=== PATIENT | male | born 1990 | race Caucasian/White ===

== ENCOUNTER 2023-02-25 15:55 | Emergency (ER) | payer BC, MEDICAID, SELFPAY ==
[2023-02-25 15:56] VITALS: BP 146/116; PULSE 101; RESP 16; TEMP 35.8; O2SAT 96; BMI 43.9
[2023-02-25 16:01] VITALS: O2SAT 98
--- NOTE | 2023-02-25 16:08 | EKG12_ITS ---
Test Reason : COUGH Blood Pressure : / mmHG Vent. Rate : 090 BPM Atrial Rate : 090 BPM P-R Int : 166 ms QRS Dur : 084 ms QT Int : 352 ms P-R-T Axes : 029 -05 018 degrees QTc Int : 430 ms Normal sinus rhythm Normal ECG Confirmed by CRISELDA MIRANDA, ROSS ([id number]), production editor TU STARR ([id number]) on 02/26/2023 9:10:57 AM Referred By: Confirmed By:ROSS ABURTO MD
--- NOTE | 2023-02-25 16:10 | EDS_ITS ---
HPI History of Present Illness Chief Complaint: Cough Informant: patient Onset/Context/Timing Onset: Weeks Narrative Narrative: Patient presents with cough, congestion, chest heaviness. He states he had cough and head congestion that he thought was consistent with his seasonal allergies for the past month. No fever noted. He states has not been taking a medication for it because everything he has tried in the past has not worked. Over the past week he now has pressure into his chest. [facility] Medical History COVID Home Medications doxycycline monohydrate 100 mg capsule 100 mg PO BID #20 CAPSULES 02/25/23 [Rx Last Taken Unknown] Allergy/AdvReac Type Severity Reaction Status Date / Time No Known Allergies Allergy Verified 02/25/23 15:58 Social History Smoking Status: Former smoker ROS ROS ED Constitutional Constitutional ED: Denies chills or fever(s) Eyes Eyes: Denies discharge from eye(s) ENT ENT ED: Reports sore throat and other Details: Sinus congestion ; Denies discharge from eye(s) or rhinorrhea Cardiovascular Cardiovascular: Reports chest pain; Denies palpitations Respiratory/Chest Respiratory/Chest: Reports cough and dyspnea Gastrointestinal Gastrointestinal: Denies abdominal pain, nausea or vomiting Genitourinary Genitourinary ED: Denies dysuria Musculoskeletal Musculoskeletal: Denies back pain or extremity pain Integumentary Denies Abrasions or rash Neurologic Neurologic: Denies headache(s) or weakness Psychiatric Psychiatric: Denies anxiety or depression Allergic/Immunologic Allergic/Immunologic ED: Denies lip swelling or urticaria EXAM Physical Exam Const Vital Signs: 02/25/23 15:56 02/25/23 16:01 02/25/23 17:07 Temperature 96.5 F L Temperature Source Temporal Pulse Rate 101 H 105 H Respiratory Rate 16 Respiratory Effort Non-Labored Short of Breath Blood Pressure 146/116 H Blood Pressure Mean 126 Pulse Ox 96 Oxygen Delivery Method Room Air Room Air Positive well nourished and well developed General Appearance ED: well developed HEENT Reports normocephalic and head/scalp atraumatic Eyes PERRL and EOMs intact bilaterally Neck supple Chest Wall inspection of chest normal and palpation of chest normal Resp normal respiratory effort and clear to auscultation bilaterally Cardio regular rate and regular rhythm GI normal to inspection, nondistended, normoactive bowel sounds Palpation: soft Extremity normal to inspection Neuro oriented x3 and no sensory deficits noted Sensorium / Orientation: alert Motor Exam: strength 5/5 throughout Psych mental status grossly normal Skin no rashes or lesions noted MDM MDM MDM Narrative Medical decision making narrative: Patient placed on manager monitoring. EKG obtained to evaluate for cardiac arrhythmia/ischemia. Chest x-ray obtained to evaluate for acute lung pathology, cardiac size, or mediastinal abnormality. Labwork obtained to evaluate for leukocytosis, anemia, and electrolyte derangement. Patient given Afrin nasal spray for congestion. Lab Data Attestation: I reviewed the patient's lab results. Labs: Laboratory Results - last 24 hr 02/25/23 02/25/23 02/25/23 16:30 16:30 16:30 WBC 12.7 H RBC 4.91 Hgb 14.3 Hct 42.6 MCV 86.8 MCH 29.1 MCHC 33.6 RDW Std Deviation 41.5 RDW Coeff of José Miguel 13.2 Plt Count 234 MPV 10.4 Immature Gran % (Auto) 0.300 Neut % (Auto) 63.7 Lymph % (Auto) 20.0 [place] % (Auto) 10.6 H Eos % (Auto) 4.7 Baso % (Auto) 0.7 Absolute Neuts (auto) 8.1 H Absolute Lymphs (auto) 2.54 Nucleated RBC % 0 D-Dimer Quant (PE/DVT) < 0.27 L Sodium 137 Potassium 3.6 Chloride 107 Carbon Dioxide 23.0 Anion Gap 7 BUN 11 Creatinine 0.91 Estim Creat Clear Calc 129.10 Est GFR (MDRD) Af Amer 124 Est GFR (MDRD) Non-Af 103 BUN/Creatinine Ratio 12.1 Glucose 93 Calcium 8.9 Troponin I High Sens 4 Radiography Chest X-Ray - ED: 2 View, Read by ED Physician, Normal, Heart, Lungs and Mediastinum Diagnostic Testing: Clinical Impression(s) from Imaging Studies Chest X-Ray 02/25/23 16:53 IMPRESSION: No radiographic evidence of acute cardiopulmonary disease. Electronically Signed: Noah Raphael MD at 17:07 EDT , EKG Initial EKG: Attestation: I personally reviewed and interpreted this EKG as follows: Interpretation: Sinus Rhythm (Sinus at 90 with no acute ischemia.) Differential Diagnosis Chest pain/SOB: pulmonary embolism Reason(s) PE less likely: Positive for D- Dimer negative, ACS ACS: Positive for no evidence of ACS based on cardiac biomarkers and EKG without ischemia and pneumonia Reason(s) pneumonia less likely: Positive for no infiltrate on CXR Treatment and Re-Evaluation :: CBC reveals a white count of 12.7 with normal differential. Chemistry studies are unremarkable. Troponin is normal at 4 and D-dimer is less than 0.27. EKG reveals no evidence of ischemia. Two-view chest x-ray per my interpretation reveals no focal infiltrate. Radiology interpretation is reviewed and agrees. Test results discussed with patient and spouse at bedside. Given his duration of symptoms I will treat him with a course of doxycycline for bronchitis. Return instructions are given. He will be referred to Dr. Todd, next on the no doc list to establish primary care. Discharge Plan Triage Chief Complaint: Cough Other Complaint: Shortness of Breath ED Provider: Khloe Cadet Dx/Rx/DC Orders Clinical Impression: Bronchitis Instructions: ED Upper Resp Infec Abx Tx Prescriptions: New doxycycline monohydrate 100 mg capsule 100 mg PO BID Qty: 20 0RF Primary Care Provider: Care Physician,No Primary Referrals: Laura Todd DO [Med Staff - Veterinary Virologist] - 1-2 Weeks Care Physician,No Primary [Primary Care Provider] - Disposition Disposition: Home, Self Care
--- NOTE | 2023-02-25 16:12 | NURSING ---
NO OLD EKGS
[2023-02-25 16:43] LABS: Absolute Lymphocyte Count 2.54 X10^3/uL (0.83-4.51); Absolute Neutrophil Count 8.1 X10^3/uL (2.0-7.7); Basophil# 0.09 X10^3/uL; Basophil% 0.7 % (0-1); Eosinophils% 4.7 % (0-5); Hematocrit 42.6 % (40-54); Hemoglobin 14.3 g/dL (13.0-16.5); Lymphocyte # 2.54 X10^3/ul (0.83-4.51); Mean Corp Hgb Conc 33.6 g/dL (32-36); Mean Corpuscular Hgb 29.1 pg (27.0-32.0); Mean Corpuscular Volume 86.8 fL (80-94); Mean Platelet Vol. 10.4 fl (6.2-12.0); Monocyte# 1.34 X10^3/uL; Monocyte% 10.6 % (0-10); NRBC Flagged by Analyzer 0 % (0-5); Neutrophil # 8.07 X10^3/uL (2.7-7.7); Neutrophil % 63.7 % (47-70); Platelet Count 234 K/mm3 (150-450); RBC Distribution Width CV 13.2 % (11.6-14.6); RBC Distribution Width SD 41.5 fl (35.1-43.9); Red Blood Count 4.91 M/mm3 (4.6-6.2); White Blood Count 12.7 K/mm3 (4.4-11.0)
--- NOTE | 2023-02-25 16:53 | RAD_ITS ---
INDICATION: cough EXAMINATION/TECHNIQUE: X-RAY - XR Chest 2 Views COMPARISON: None. FINDINGS: LINES/DEVICES: None. LUNGS: No consolidation, edema or effusion. No pneumothorax. MEDIASTINUM AND CARDIOVASCULAR STRUCTURES: Cardiac silhouette not enlarged. BONES AND SOFT TISSUES: Unremarkable. RAD/Chest PA and Lateral IMPRESSION: No radiographic evidence of acute cardiopulmonary disease. Electronically Signed: Noah Raphael MD at 17:07 EDT ,
[2023-02-25] MEDS: Oxymetazoline 0.05% 1 SPRAY SPRAY.BTL 2 SPRAY NASAL (17:03)
[2023-02-25 17:07] VITALS: PULSE 105
[2023-02-25 17:10] LABS: Anion Gap 7 (5-15); BUN 11 mg/dL (7-18); BUN/Creat Ratio 12.1 RATIO (10-20); Calcium,Total 8.9 mg/dL (8.5-10.1); Chloride 107 mmol/L (98-107); Creatinine, Serum 0.91 mg/dL (0.70-1.30); EST Glomerular Filtration Rate 103 mL/min (>60); Est Glom Filt Rate - Afr Amer 124 mL/min (>60); Glucose 93 mg/dL (74-106); Potassium 3.6 mmol/L (3.5-5.1); Sodium Level 137 mmol/L (136-145); Troponin-I HS 4 pg/mL (3.0-78.0)
[2023-02-25 17:18] LABS: D-Dimer Quantitative (DVT/PE) < 0.27 FEU/ug/m (0.27-0.49)
[2023-02-25 18:20] VITALS: BP 151/93; PULSE 95; RESP 27; O2SAT 98
[2023-02-25] MEDS: Doxycycline 100 MG CAPSULE PO (18:29)
== END 2023-02-25 18:33 | disposition home or self-care (01) ==
PROVIDERS: Emergency Provider Emergency Medicine; Visit Provider Emergency Medicine
DX: J40 Bronchitis, not specified as acute or chronic (principal); Z87.891 Personal history of nicotine dependence
CPT/HCPCS: 71046; 80048; 84484; 85025; 85379; 93005; 99284